=== PATIENT | male | born 1985 | race Caucasian/White ===

== ENCOUNTER 2023-09-13 08:25 | Day surgery (SDC) | payer OTHER ==
[~2023-09-13] VITALS: Ht 185.4 cm; Wt 117.0 kg
[2023-09-13] VITALS (11 sets, daily range): BP systolic 117–136; BP diastolic 73–88; PULSE 68–75; TEMP 98.6
[2023-09-13] MEDS ORDERED: MAG-OX 400400 MG/TAB PO (08:45)
[2023-09-13] MEDS ORDERED: TOPAMAX 25MG25 M1 PO (08:46)
[2023-09-13] MEDS ORDERED: IMITREX50 MG PO (08:47)
[2023-09-13] MEDS ORDERED: 1/2 NS 1,000 ML IV SCH (09:00)
[2023-09-13 09:10] LABS: HEMATOCRIT 43.4 % (42.0-52.0); HEMOGLOBIN 15.8 g/dl (13.5-18.0); MEAN CELL VOLUME 86 fl (80.0-100.0); MEAN CORPUSCULAR HEMOGLOBIN 31 pg (27-31); MEAN CORPUSCULAR HGB CONC 36 g/dl (33.0-37.0); MEAN PLATELET VOLUME 8.6 fl (7.4-10.4); PLATELET COUNT 201 K/mm3 (130-400); RED BLOOD COUNT 5.05 M/mm3 (4.20-5.60); REDCELL DISTRIBUTION WIDTH-CV 13.2 % (11.5-14.5)
[2023-09-13 09:12] LABS: INR 1.1 (0.8-3.0); PROTHROMBIN TIME 12.3 SECONDS (9.7-12.8)
[2023-09-13 09:15] LABS: PARTIAL THROMBOPLASTIN TIME 25.8 SECONDS (26.0-37.0)
[2023-09-13 09:21] LABS: CALCIUM 9.9 mg/dL (8.4-10.2); CREATININE, serum 1.44 mg/dL (0.72-1.25)
--- NOTE | 2023-09-13 10:18 | NUR ---
SEE MERGE FOR PROCEDURE DOCUMENTATION
[2023-09-13] MEDS ORDERED: Heparin 1,000 UNITS/ML 10 ML Multi-Dose VIAL IV SCH (10:38)
[2023-09-13] MEDS ORDERED: Midazolam 2 MG/2 ML VIAL IV SCH (10:40)
[2023-09-13] MEDS ORDERED: Heparin 1,000 UNITS/ML 10 ML Multi-Dose VIAL IA SCH (10:40)
[2023-09-13] MEDS ORDERED: fentaNYL 50 MCG/ML 2 ML VIAL IV SCH (10:41)
[2023-09-13] MEDS ORDERED: Nitroglycerin 100 MCG/ML (Cath Lab) 10 ML VIAL IA SCH (10:43)
[2023-09-13] MEDS ORDERED: Verapamil 2.5 MG/ML 2 ML VIAL IA SCH (10:49)
[2023-09-13] MEDS ORDERED: Iohexol 350 - 100 ML VIAL INCOR ONE (10:49)
--- NOTE | 2023-09-13 11:08 | NUR ---
PATIENT ALERT AND ORIENTED, TRANSFERRED TO BED VIA SLIDE INDEPENDENTLY. PATIENT TRANSPORTED TO [facility]. VITAL SIGNS TAKEN ON ARRIVAL, VSS. RADIAL SITE REMAINS CDI, DENIES CHEST PAIN OR NAUSEA AT THIS TIME. BED PLACED IN LOWEST POSITION, CALL LIGHT WITHIN REACH, X3 BEDRAILS IN PLACE. TRANSFER OF CARE TO PATRICIO BOND
--- NOTE | 2023-09-13 13:00 | NUR ---
Pt finished meal tray. Assisted up to restroom. Gait steady. will return to pick him up after she picks their children up from school. Resting back in bed. Call light in reach.
--- NOTE | 2023-09-13 13:41 | NUR ---
DC instructions reviewed with pt. Air has been removed from TR band in 2 ml increments. No bleeding or complication at site. Rt radial puncture site is dressed with folded 2x2 and bandaid. Pt is steady on feet in room. IV DC'd, site wrapped with coban. He has contacted who will attempt to pick him up before getting their kids from school. Pt resting comfortably in bed for now. hospital secretary removed. Pt has been in sinus rhythm since return from [employer]phalt [employer] lab[employer], and vitals have all been stable. Call light in reach.
--- NOTE | 2023-09-13 14:34 | NUR ---
Pt continues to rest comfortably in room, denies needs. Call light in reach. He will remain in room until is able to pick him up.
--- NOTE | 2023-09-13 15:54 | NUR ---
Pt's arrives. Pt is assisted out to her car by wheelchair with belongings. DC paperwork was reviewed previously, and pt expresses understaning. Dressing to rt radial site remains clean, dry and intact. Pt free of complaints at discharge.
== END 2023-09-13 15:54 | disposition home or self-care (01) ==
LOC: COL.CAR 08:25
PROVIDERS: Internal Medicine Cardiovascular Disease
DX: I25.10 Atherosclerotic heart disease of native coronary artery without angina pectoris (principal); I10 Essential (primary) hypertension
CPT/HCPCS: C1769; J1644; J2250; J3010; Q9967